=== PATIENT | female | born 1940 | race Caucasian/White ===

== ENCOUNTER 2017-10-31 06:24 | Inpatient (IN) | payer MEDICARE ==
[~2017-10-31] VITALS: Ht 165.1 cm; Wt 81.6 kg
[~2017-10-31 06:24] MED LIST: ASPIR 8181 MG PO; C-10001000 MG PO; CALCIUM CARBO1250 MG PO; CLARITIN10 MG PO; GABAPENTIN 100100 MG PO; HAIR, SKIN & N1 EAC3 PO; LIPITOR80 MG PO; MOBIC15 MG PO; OXYBUTYNIN CHLO15 MG PO; PROTONIX40 M2 PO
[2017-11-23] MEDS ORDERED: TRAMADOL 50 MG50 MG PO (14:54)
[2017-11-23] MEDS ORDERED: MYRBETRIQ25 MG PO (14:54)
[2017-12-01 09:28] LABS: ABSOLUTE BASOPHILS 0.1 thou/uL (0.0-0.2); ABSOLUTE EOSINOPHILS 0.2 thou/uL (0.0-0.7); ABSOLUTE LYMPHOCYTES 2.1 thou/uL (0.8-5.3); ABSOLUTE MONOCYTES 0.4 thou/uL (0.0-1.2); ABSOLUTE NEUTROPHILS 3.9 thou/uL (1.6-8.1); BASOPHILS 1.3 %; EOSINOPHILS 2.8 %; HEMATOCRIT 43.3 % (37.0-47.0); HEMOGLOBIN 14.5 gm/dL (12.0-15.0); LYMPHOCYTES 31.2 %; MCH 30.3 pg (26.0-34.0); MCHC 33.5 g/dL (28.0-37.0); MCV 90.4 fL (80.0-100.0); MONOCYTES 6.3 %; MPV 8.5 fl. (7.2-11.1); NUCLEATED RBCS 0 /100WBC; PLATELET COUNT* 254 thou/uL (150-400); POLYS 58.4 %; RBC 4.79 mil/uL (4.20-5.00); WBC 6.7 thou/uL (4.0-11.0)
[2017-12-01 09:38] LABS: APTT 31.4 Seconds (25.0-31.3); INR 1.1; PROTIME 10.7 Seconds (9.20-11.50)
[2017-12-01 09:46] LABS: ALBUMIN 3.5 g/dL (3.4-5.0); CALCIUM 9.1 mg/dL (8.5-10.1); CREATININE 0.9 mg/dL (0.6-1.3); POTASSIUM 3.6 mmol/L (3.5-5.1); TOTAL BILIRUBIN 0.5 mg/dL (<0.1-1.0); TOTAL PROTEIN 7.3 g/dL (6.4-8.2)
--- NOTE | 2017-12-01 09:47 | EKG ---
[place] [address] ELECTROCARDIOGRAM REPORT Name: NIHARIKA AUSTIN Room: PRE IN [facility].#: [id number] Admission: Attend Phys: Santosh Beckham Discharge: Date of : 40 Report #: [id number] THIS REPORT FOR: //name// [facility] Test Date: 2017-12-01 Test Time: 09:28:31 Pat Name: NIHARIKA AUSTIN Department: Room: Gender: F Pipefitter Helper: : 1940 Requested By: Leon Jerome Order Number: [id number] Reading MD: Handy Rascon Measurements Intervals [place] Rate: 75 P: 65 GA: 189 QRS: -5 QRSD: 103 T: 68 QT: 414 QTc: 463 Interpretive Statements Sinus rhythm Low voltage, precordial leads RSR' in V1 or V2, right VCD or RVH No previous ECG available for comparison Electronically Signed On 12-01-2017 9:47:41 CDT by Handy Rascon [email or web address] <ELECTRONICALLY SIGNED> By: Handy Rascon MD, [facility] 12/01/17 0947 7 Handy Rascon MD, FACC /EPI
[2017-12-01 10:27] LABS: ESR (SEDRATE) 11 mm/hr (0-30)
[2017-12-02 03:13] LABS: GLYCOHEMOGLOBIN (HGB A1C) 5.6 % (4.8-5.6)
--- NOTE | 2017-12-12 16:55 | NUR ---
POST OP L TOTAL KNEE REPORT GIVEN PATIENT TO RM AND ORIENTED TO CALL LIGHT AND RM C/O OF PAIN TO GET PO PAIN MED ADAN WITH DELIVERY OF FOOD
[2017-12-12 17:06] VITALS: BP 164/75
[2017-12-12 20:20] VITALS: BP 161/78
[2017-12-12 23:41] VITALS: BP 146/64
[2017-12-13 04:00] VITALS: BP 131/68
[2017-12-13 04:10] LABS: HEMATOCRIT 37.6 % (37.0-47.0); HEMOGLOBIN 12.4 gm/dL (12.0-15.0); MCH 30.1 pg (26.0-34.0); MPV 8.6 fl. (7.2-11.1); RBC 4.13 mil/uL (4.20-5.00); RDW-CV 13.8 % (10.5-14.5); WBC 14.2 thou/uL (4.0-11.0)
[2017-12-13 04:29] LABS: CALCIUM 8.9 mg/dL (8.5-10.1); CREATININE 0.8 mg/dL (0.6-1.3); POTASSIUM 4.9 mmol/L (3.5-5.1)
--- NOTE | 2017-12-13 05:01 | NUR ---
PATIENT HAS SLEPT OFF AND ON BUT HAS BEEN RESTLESS AT TIMES. PAIN CONTROLLED WITH ORAL PAIN MEDICATIONS. VSS ON 3L O2 VIA NASAL CANNULA AND CAPNO IN PLACE. CEDENO TO DEPENDENT DRAINAGE WITH YELLOW URINE OUTPUT, BUT IS TO BE REMOVED THIS AM. SURGICAL DRESSING TO LEFT KNEE IS C/D/I, FRANCESCA VERGARAE AND SCD'S IN PLACE. PATIENT INSTRUCTED TO USE CALL LIGHT WHEN NEEDING ASSISTANCE. HOURLY ROUNDS MADE. WILL CONTINUE WITH PLAN OF CARE AND NURSING TO MONITOR.
[2017-12-13 07:52] VITALS: BP 142/70
--- NOTE | 2017-12-13 16:01 | NUR ---
RECIEVED O.T. EVAL AND TX ORDERS. WILL DEFER TO P.T. AND NURSING. PLEASE ORDER FURTHER O.T. SERVICES IF NEEDED.
--- NOTE | 2017-12-13 16:29 | NUR ---
PT.RESTING IN BED. SHE WAS ALERT AND ORIENTED. SHE LIVES BY HERSELF. SHE WILL BE GOING TO STAY AT HER DAUGHTER,ALISA'S HOME AT DISCHARGE. DAUGHTER DOESN'T HAVE STAIRS EXCEPT ONE TO GET IN THE HOUSE. PT.HAS 2 WALKERS. SHE IS NORMALLY INDEPENDENT AT HOME. SHE PLANS ON GOING TO OUTPT.THERAPY AT [facility] IN [place]. HER SON IN LAW WILL TAKE HER. PHARMACY IS [facility] IN [place].
[2017-12-13 16:32] VITALS: BP 142/70
--- NOTE | 2017-12-13 17:35 | NUR ---
ASSUMED CARE OF PATIENT AFTER MORNING REPORT. ALERT AND ORIENTED X4. ASSESSMENT COMPLETED AND CHARTED. VSS ON 2 LITERS 02. PATIENTS PAIN AND NAUSEA HAVE BEEN MANAGED WITH MEDICATION. PATIENT TITRATED OFF OF 02 AND REMAINS STABLE ON ROOM AIR. WORKED WELL WITH THERAPY TODAY. IV INFILTRATED AFTER LAST ROUND OF IV ANTIBIOTICS, ALL MEDS ARE PO NOW SO IV ACCESS HAS BEEN LEFT OUT. HOURLY ROUNDS HAVE BEEN MAINTAINED. CALL LIGHT IS WITHIN REACH. NURSING WILL CONTINUE TO MONITOR.
[2017-12-13 17:38] VITALS: BP 155/88
[2017-12-13 20:20] VITALS: BP 140/72
[2017-12-13 23:57] VITALS: BP 143/60
[2017-12-14 04:09] VITALS: BP 131/74
[2017-12-14 04:28] LABS: HEMATOCRIT 33.3 % (37.0-47.0); HEMOGLOBIN 11.2 gm/dL (12.0-15.0); MCHC 33.6 g/dL (28.0-37.0); MCV 89.5 fL (80.0-100.0); MPV 8.4 fl. (7.2-11.1); RBC 3.72 mil/uL (4.20-5.00); RDW-CV 13.8 % (10.5-14.5)
--- NOTE | 2017-12-14 05:12 | NUR ---
PATIENT HAS SLEPT OFF AND ON BUT RESTLESS AT TIMES. PAIN WELL CONTROLLED WITH ORAL PAIN MEDICATION NEEDED AND CHARTED. PATIENT HAD SLIGHTLY DECREASED 02 SATURATION AND WAS PLACED ON 2L 02 VIA NASAL CANNULA. VSS ON 2L 02, ALTHOUGH PULSE HAS BEEN SLIGHT TACHYCARDIC AT TIMES. DRESSING TO LEFT KNEE IS C/D/I, FRANCESCA HOSE, AND SCD'S IN PLACE. PATIENT INSTRUCTED TO USE CALL LIGHT WHEN NEEDING ASSISTANCE. HOURY ROUNDS MADE. WILL CONTINUE WITH PLAN OF CARE AND NURSING TO MONITOR.
[2017-12-14 08:14] VITALS: BP 117/67
[2017-12-14 14:25] VITALS: BP 146/64
--- NOTE | 2017-12-14 15:14 | NUR ---
SPOKE WITH PT.AND DAUGHTER,ALISA. PT.NOT PROGRESSING WELL IN THERAPY SHE THOUGHT SHE WOULD. SHE FEELS SHE NEEDS TO GO TO SNF. HER DAUGHTER WORKS DURING THE DAY AND SAID SHE CANNOT EVEN WALK TO THE BATHROOM BY HERSELF. THERAPY CONCURS. SHE WOULD LIKE TO GO TO [facility] OR [facility]. SPOKE WITH DOMENICO AND [facility] IN ADMISSIONS RESPECTIVELY AND FAXED THEM BOTH REFERRALS. THEY SAID THEY WILL REVIEW AND GET BACK TO CM.
--- NOTE | 2017-12-14 17:50 | NUR ---
ASSUMED CARE OF PATIENT AFTER MORNING REPORT. ALERT AND ORIENTED X4. ASSESSMENT COMPLETED AND CHARTED. VSS ON 2 LITERS 02. PATIENTS PAIN AND NAUSEA HAVE BEEN MANAGED WITH MEDICATION. PATIENT IS WORKING WELL WITH THERAPY AND PROGRESSING TOWARDS GOALS. RESTING COMFORTABLY IN BED AT THIS TIME. HOURLY ROUNDS HAVE BEEN MAINTAINED. CALL LIGHT WITHIN REACH. NURSING WILL CONTINUE TO MONITOR.
[2017-12-14 20:30] VITALS: BP 140/69
[2017-12-15 00:16] VITALS: BP 150/73
[2017-12-15 04:01] VITALS: BP 128/60
--- NOTE | 2017-12-15 05:18 | NUR ---
PATIENT ALERT AND ORIENTED X4 THROUGHOUT SHIFT. VITAL SIGNS STABLE, OXYGEN STABLE ON 2 LITERS NASAL CANNULA. PAIN MANAGED WITH PO MEDICATION. DENIED NAUSEA. SCD'S AND FRANCESCA HOSE IN PLACE TO BILAT LEGS. TRANSFERRING WITH ASSIST X1 TO THE BATHROOM WITH WALKER AND GAIT BELT. TOLERATING REGULAR DIET. THERE IS CURRENTLY NO IV IN PLACE. RESTED COMFORTABLY THROUGHOUT THE NIGHT. FALL PRECAUTIONS REMAIN IN PLACE. BED IN LOW POSITION WITH ALARM ON. CALL LIGHT WITHIN REACH. NURSING WILL CONTINUE TO MONITOR.
[2017-12-15 08:45] VITALS: BP 145/66
--- NOTE | 2017-12-15 09:56 | S ---
[address] [address] SURGICAL PATH RPT PROCEDURE Name: PAULINA GUDINO Room: [address] IN M.R.#: [id number] Admission: 12/12/17 Date of : 40 Discharge: Report #: [id number] Path Case #: [id number] PATHOLOGY REPORT COLLECTION DATE: 12/12/2017 RECEIVED DATE: 12/12/2017 SUBMITTING PHYS: Dr. Leon Jerome OTHER PHYS: Dr. Rafael Cartagena SPECIMEN(S) RECEIVED: A.L knee bone and tissue * * * * * * * * * * * * FINAL DIAGNOSIS: Left knee bone and tissue, total knee replacement: - Benign meniscus and fibrofatty tissue/synovium and benign bone and cartilage with severe degenerative changes. (ROBBY:db; 12/14/2017) PATHOLOGIST: Kevin Jackson M.D. REPORT ELECTRONICALLY SIGNED BY: Kevin Jackson M.D. DATE/TIME: 12/15/2017 09:55 * * * * * * * * * * * * GROSS PATHOLOGY: Received in formalin labeled "Paulina uGdino, bone and tissue left knee," are multiple segments of bone, including tibial plateau, measuring 8.2 x 7.6 x 1.8 cm in aggregate dimensions admixed with soft tissue; meniscus is present. The specimen shows focal eburnation of the articular surfaces. [facility] sections of bone and soft tissue are submitted in cassette A1, following decalcification. (CAA; 12/13/2017) CLINICAL HISTORY: Left knee degenerative joint disease INITIAL CPT CODE(S): A; 41623, 62570 Professional services performed by [facility] at [facility] [address] [place] [address] Technical services performed by [facility] at [address] [place] [address], [facility] [[email or web address] [address] [address]. [place] [address] SURGICAL PATH RPT PROCEDURE Name: PAULINA GUDINO Room: [address] IN [facility].#: [id number] Admission: 12/12/17 Date of : 40 Discharge: Report #: [id number] Path Case #: [id number] [facility] [address] [address] PHONE: [phone] DIRECTOR: Guy Schulte M.D. * * * END OF REPORT * * *
--- NOTE | 2017-12-15 12:41 | NUR ---
PT.HAS DISCHARGE ORDERS FOR TODAY. BOTH [facility] HAVE ACCEPTED HER AND SHE CHOSE [facility]. NOTIFIED TESS AND FAXED ORDERS TO HER AT [phone]. PT.CALLING DAUGHTER TO SEE WHEN SHE CAN GET OFF WORK TO DRIVE HER THERE. WILL NOTIFY [facility]. CM NOTIFIED [facility] THAT PT.CHOSE ANOTHER FACILITY. CHART COPIED TO GO WITH PT. NURSING TO CALL REPORT TO [phone].
[2017-12-15 14:07] VITALS: BP 142/70
[2017-12-15] MEDS ORDERED: ONDANSETRON HCL4 M2 PO (14:25)
[2017-12-15] MEDS ORDERED: ELIQUIS2.5 MG PO (14:26)
[2017-12-15] MEDS ORDERED: OXYCODONE HCL 55 MG PO (14:26)
--- NOTE | 2017-12-15 18:44 | NUR ---
PATIENT LEFT UNIT AT 1500. ALERT AND ORIENTED X4. UP WITH ASSIST X1 WITH WALKER AND GAIT BELT. IV DC'D. PAIN BEING MANAGED WITH PO PAIN MEDICATION. DENIES NEED FOR NAUSEA MEDICATION THIS SHIFT. ATTENDED AM THERAPY TODAY. ICE PACKS IN PLACE THROUGHOUT SHIFT. ALL PERSONAL ITEMS LEFT WITH PATIENT. DISCHARGE INSTRUCTIONS, PRESCRIPTIONS, AND NEW MEDICATION INFORMATION SENT WITH PATIENT. VSS ON ROOM AIR. HOURLY ROUNDS HAVE BEEN MAINTAINED THROUGHOUT SHIFT. LEFT WITH DAUGHTER VIA CAR TO [facility]. REPORT CALL TO NURSE AT FACILITY.
[2017-12-15 18:55] VITALS: BP 142/70
--- NOTE | 2018-01-09 16:46 | OP ---
[address] [address] OPERATIVE REPORT Name: NIHARIKA AUSTIN Room: [address] IN .R.#: [id number] Admission: 12/12/17 Attend Phys: Santosh Beckham Discharge: 12/15/17 Date of : 40 Report #: [id number] THIS REPORT FOR: //name// CC: Vadim Iverson DICTATED BY: Roland Colbert DO DATE OF SERVICE: 12/12/2017 PREOPERATIVE DIAGNOSIS: Advanced degenerative joint disease, left knee. POSTOPERATIVE DIAGNOSIS: Advanced degenerative joint disease, left knee. PROCEDURE PERFORMED: Left total knee arthroplasty. SURGEON: Leon Jerome DO. TUMBLER PLATER: Reta Colbert DO and Andrzej Lynn DO ANESTHESIA: Spinal with adductor canal. ESTIMATED BLOOD LOSS: 175 mL. SPECIMENS: None. TOURNIQUET: None. IMPLANTS: Biomet Vanguard total knee system with the following components: 1. A cruciate retained femur, 62.5 mm. 2. A 71 mm fixed cruciate tibial plate. 3. A 10 mm tibial bearing. 4. A 28 mm asymmetric patella. ANTIBIOTICS: 2 g IV Ancef preoperatively. Notes: IV TXA given preoperatively as well. INDICATIONS: The patient is a pleasant 77-year-old female who we have had the opportunity to see in clinic for quite some time now. She has had chronic left knee pain. She has undergone extensive conservative care consisting of oral anti-inflammatories, intra-articular steroid injections, therapy exercises, lifestyle modifications and attempted weight loss. Despite this, she continues to have life altering pain. She is unable to perform her daily activities and has a decreased quality of life due to this pain. For this reason, we discussed [address] [address] OPERATIVE REPORT Name: NIHARIKA AUSTIN Room: [address]#: [id number] Admission: 12/12/17 Attend Phys: Santosh Beckham Discharge: 12/15/17 Date of : 40 Report #: [id number] total knee arthroplasty. She understood and wished to proceed. DESCRIPTION OF PROCEDURE: The patient was seen in the preoperative area where the risks, benefits and alternatives of total knee arthroplasty were discussed. Risks include but are not limited to infection, neurovascular injury, stiffness, continued pain, worsening pain, need for further surgery, DVT, PE and inherent risks associated with anesthesia. She verbalized understanding. Written consent was obtained. She was brought back to the operative suite and placed supine on a well-padded operative table. She was given spinal anesthesia. A well-padded pneumatic tourniquet was applied to the left upper thigh. The left lower extremity was prepped and draped in normal sterile fashion. A surgical timeout was performed where the site, side, and procedure were verified. Everyone present was in agreement. The procedure began by making a standard midline incision. Sharp dissection was taken down through the soft tissues to the level of capsule. A new knife was used to perform a medial parapatellar arthrotomy. The medial capsule was released off the tibia. The patella was everted and the fat pad and anterior menisci were removed. The intramedullary femoral guide was introduced and the distal femoral guide was pinned into place. A standard 10 mm cut was performed. The excess bone was removed. We then turned our attention to the tibia. The extramedullary guide was applied. The proximal tibial guide was pinned into place, taking 10 mm off the high side. This cut was performed in a standard fashion. The cutting block was removed. Excess bone was removed. The knee was brought out into full extension. A 10 block was inserted. She was found to be symmetrically tight. The distal femoral cutting guide was again pinned into place. Next a millimeter was taken. This was all done in 5 degrees of valgus. The femoral sizer was used and measured a 62.5 mm. The 4-in-1 cutting guide was pinned into place. The cuts were made in the normal fashion, anterior, posterior, anterior and posterior chamfer cuts. The cutting block was removed and excess bone was removed as well. The menisci were excised using electrocautery. Our attention was then turned back to the tibia. The tibia measured to a 71 mm baseplate. This was pinned into place. The trial femur was inserted. A 10 mm trial poly was inserted. She achieved full flexion and extension. Flexion and extension gaps were symmetric. Our attention was then turned to the patella, which showed eburnated bone as well as significant osteophytes. For this reason, it was decided to resurface the patella. This was done in the standard fashion with the reamer. This then measured to a 28 mm. The three pegs were drilled. The trial poly patella was inserted. Again, she was taken through range of motion, demonstrating full flexion and extension with symmetric flexion and extension gaps. Patella was tracking well. All the components were removed. The femur was drilled. The tibia was prepared with a drill and cruciform punch. The knee was thoroughly irrigated with pulsatile lavage. The cement was prepared in the normal sterile fashion. The final implants were cemented in and excess cement was removed. A trial 10 mm poly was inserted. Again found to have full flexion, extension with symmetric flexion and extension gaps. The final 10 mm [facility] [address] [place] [address] OPERATIVE REPORT Name: AUSTINNIHARIKA S Room: [address] M.R.#: [id number] Admission: 12/12/17 Attend Phys: Santosh Beckham Discharge: 12/15/17 Date of : 40 Report #: [id number] poly was inserted. The knee was brought to 90 degrees of flexion. The wound was thoroughly irrigated. A topical vancomycin powder was applied. The capsule was closed with a #1 Vicryl in jiwuyl-mv-ahvgt fashion and reinforced with a #1 Stratafix. The wound was again irrigated. The subcutaneous tissue was closed with 2-0 Monocryl. This was followed by 3-0 Stratafix and reinforced with glue. Sterile dressing was applied including Mepilex. FRANCESCA hose were applied. She was awoken from anesthesia and transferred to PACU in stable condition. Needle and sponge counts were correct x 2. <ELECTRONICALLY SIGNED> By: Leon Jerome DO 01/09/18 1646 1547 1616Leon Jerome DO /nt
== END 2017-12-15 15:15 | DRG 470 ==
LOC: M.PRE 06:24 → M.ORTHSURG 12-12 09:05 → M.TBA 12-12 09:05 → M.PRE 12-12 09:20 → M.ORTHSURG 12-12 16:59
PROVIDERS: Orthopaedic Surgery; ADMIT Internal Medicine
PROC: 0SRD0J9 Replacement of Left Knee Joint with Synthetic Substitute, Cemented, Open Approach (ICD-10-PCS; principal; 2017-12-12)
DX: M17.12 Unilateral primary osteoarthritis, left knee (principal); J98.11 Atelectasis; K21.9 Gastro-esophageal reflux disease without esophagitis; E78.5 Hyperlipidemia, unspecified; J30.2 Other seasonal allergic rhinitis; G47.00 Insomnia, unspecified; R09.02 Hypoxemia; Z79.899 Other long term (current) drug therapy; Z90.710 Acquired absence of both cervix and uterus; Z79.82 Long term (current) use of aspirin

== ENCOUNTER 2019-02-26 07:44 | Inpatient (IN) | payer MEDICARE ==
[2019-02-15 09:06] LABS: ABSOLUTE EOSINOPHILS 0.1 thou/uL (0.0-0.7); ABSOLUTE LYMPHOCYTES 1.3 thou/uL (0.8-5.3); ABSOLUTE MONOCYTES 0.4 thou/uL (0.0-1.2); ABSOLUTE NEUTROPHILS 2.5 thou/uL (1.6-8.1); BASOPHILS 0.9 %; EOSINOPHILS 2.5 %; HEMATOCRIT 42.5 % (37.0-47.0); HEMOGLOBIN 14.3 gm/dL (12.0-15.0); LYMPHOCYTES 30.4 %; MCH 29.7 pg (26.0-34.0); MCHC 33.7 g/dL (28.0-37.0); MONOCYTES 8.4 %; MPV 8.5 fl. (7.2-11.1); NUCLEATED RBCS 0 /100WBC; PLATELET COUNT* 207 thou/uL (150-400); POLYS 57.8 %; RBC 4.83 mil/uL (4.20-5.00); RDW-CV 13.6 % (10.5-14.5); WBC 4.4 thou/uL (4.0-11.0)
[2019-02-15 09:14] LABS: APTT 31.1 Seconds (25.0-31.3); INR 1.1; PROTIME 11.3 Seconds (9.20-11.50)
[2019-02-15 09:33] LABS: CALCIUM 9.2 mg/dL (8.5-10.1); POTASSIUM 4.1 mmol/L (3.5-5.1)
[2019-02-15 09:38] LABS: ALBUMIN 3.6 g/dL (3.4-5.0); TOTAL BILIRUBIN 0.6 mg/dL (<0.1-1.0); TOTAL PROTEIN 7.1 g/dL (6.4-8.2)
[2019-02-15 10:24] LABS: ESR (SEDRATE) 5 mm/hr (0-30)
--- NOTE | 2019-02-15 11:37 | EKG ---
[place] [address] ELECTROCARDIOGRAM REPORT Name: NIHARIKA AUSTIN Room: [facility]#: [id number] Admission: Attend Phys: Leon Jerome DO Discharge: Date of : 40 Report #: [id number] THIS REPORT FOR: //name// [facility] Test Date: 2019-02-15 Test Time: 09:18:02 Pat Name: NIHARIKA AUSTIN Department: Room: Gender: F Hand Mixer: LOCO : 1940 Requested By: Leon Jerome Order Number: [id number] Reading MD: Duy Gilliam Measurements Intervals [employer] Rate: 57 P: 56 AK: 187 QRS: 4 QRSD: 102 T: 34 QT: 450 QTc: 439 Interpretive Statements Sinus rhythm Low voltage, precordial leads RSR' in V1 or V2, right VCD or RVH Compared to ECG 12/01/2017 09:28:31 No significant changes Electronically Signed On 02-15-2019 11:37:20 CDT by Duy Gilliam [email or web address] <ELECTRONICALLY SIGNED> By: Duy Gilliam MD, [facility] 02/15/19 1137 7 7 Duy Gilliam MD, [facility] /EPI
[~2019-02-26] VITALS: Ht 165.1 cm; Wt 81.2 kg
--- NOTE | ~2019-02-26 | OP ---
[address] [address] OPERATIVE REPORT Name: NORMANNIHARIKA S Room: [address] IN M.R.#: [id number] Admission: 02/26/19 Attend Phys: Santosh Beckham Discharge: Date of : 40 Report #: [id number] THIS REPORT FOR: //name// CC: LOUISE DOUGLAS Physician staff Rafael Iverson DICTATED BY: Vicente Bello DO DATE OF SERVICE: 02/26/2019 PREOPERATIVE DIAGNOSIS: Advanced degenerative joint disease of the right knee. POSTOPERATIVE DIAGNOSIS: Advanced degenerative joint disease of the right knee. PROCEDURE PERFORMED: Right total knee arthroplasty. SURGEON: Leon Jerome DO EMBROIDERY ASSISTANT: Dorinda Arnold PA-C, and Vicente Bello DO IMPLANTS USED: Biomet Vanguard knee system, 62.5 femur, 71 tibia, 12 poly and a 28 patella. ANESTHESIA: Spinal, local, and peripheral nerve block by Anesthesia. ESTIMATED BLOOD LOSS: 125 mL. SPECIMENS REMOVED: None. COMPLICATIONS: None. DISPOSITION: Stable to PACU. INDICATIONS FOR PROCEDURE: The patient is a very pleasant 79-year-old female, who has been dealing with bilateral knee pain for quite some time. She underwent a left total knee arthroplasty in 2018. She has done very well with that. She continues to have right knee pain. X-rays preoperatively demonstrate joint space narrowing, sclerosis, osteophytic changes and no acute osseous abnormality. We attempted conservative measures. She did rehab and prehab in regards to her right knee pain and she continued to have symptoms that were making her be more sedentary and affect her ADLs. We discussed the risks, benefits, complications, alternatives and indications of procedure. She voiced understanding and wished to proceed. DESCRIPTION OF PROCEDURE: The patient was seen in the preoperative holding [address] [address] OPERATIVE REPORT Name: NIHARIKA AUSTIN Room: [address] IN [facility]#: [id number] Admission: 02/26/19 Attend Phys: Santosh Beckham Discharge: Date of : 40 Report #: [id number]. Correct operative site was marked. Verbal and written consents were obtained. She was transferred to the operative suite and placed supine on the operating table and given the benefit of monitored anesthesia care and the right lower extremity was prepped and draped in the normal sterile fashion. Timeout was performed and all in attendance were in agreement as to correct operative site and procedure to be performed. A 20-blade scalpel was then used to make an anterior longitudinal incision over the knee. This was taken down to the level of the capsule and then a new 10 blade scalpel was used to perform a medial parapatellar arthrotomy. Once we had adequate visualization of the articular surfaces, the intramedullary drill for the femur was used to gain access to the canal. The intramedullary guide was then passed and held in place with bone screws and our distal femoral resection was made. Excess bone was removed to this point. Cutting block was removed and our external tibial guide was placed. We then took 10 mm off the high lateral side and the cutting block was held in place with bone screws. Utilizing the oscillating saw, our proximal tibial resection was then made and excess bone osteophytes were removed appropriately. Knee was taken into extension and 10-mm extension block tracker was placed and found to have excellent alignment and coronal balancing. The knee pins were then removed. The knee was flexed. An AP sizer for the femur was placed. She measured for 62.5 and appropriate drill holes were made with external rotation and verified with Whitesides line. The 4-in-1 cutting block was malleted into place and held with bone nails. Our 4-in-1 resection cuts were made. Excess bone osteophytes were removed utilizing a rongeur and electrocautery. Once this was performed, our tibial trial was held in place. A drop jane was used to verify proper alignment. This was held in place with a bone nails and then our trial femur was placed. A 10-mm spacer poly trial was inserted into the knee, taken through range of motion and found to have good balancing in the coronal plane, although was more lax than ideal. We then used the 12-mm trial and this was found to have excellent range of motion, excellent balance in the coronal and sagittal planes. The patella was then everted, cauterized using electrocautery circumferentially. We then used a 41-mm patellar reamer, resecting appropriate amount of cartilage and bone. We then trialed this and sized at 28 mm. PEG holes were drilled and our patellar trial was inserted. Knee was taken through range of motion and found to have excellent patellar tracking. The trial implants were removed with the exception of the proximal tibia, which was used to further prepare the proximal tibia with our intramedullary reamer followed by the cruciate osteotome. Once the trial was then removed, the knee was thoroughly irrigated with sterile saline in a pulsatile fashion. Once the cut bony surfaces were thoroughly irrigated with pulsatile lavage, the cement was mixed under vacuum suction on the back table, applied to the bony surfaces as well as the implants. Final implants were then malleted into place. Excess cement was removed utilizing a Crawford and a Sharyn and this was allowed to harden appropriately. Final 12-mm poly was inserted and taken through [facility] [address] [place] [address] OPERATIVE REPORT Name: JUANPABLO AUSTINJULIANN Akbar Room: [address] IN .R.#: [id number] Admission: 02/26/19 Attend Phys: Santosh Beckham Discharge: Date of : 40 Report #: [id number] range of motion and found to have excellent stability and patellar tracking in all planes. The capsule was then closed using a #1 Vicryl in leizkv-gb-esefh fashion followed by a running #1 Quill barbed suture and 1 gram of vancomycin was inserted into the joint and around the soft tissues. Skin was closed using 2-0 Monocryl in an inverted interrupted fashion followed by running 3-0 Stratafix and Dermabond skin glue. A sterile Mepilex dressing was placed over this. Hemostasis was maintained throughout the case, utilizing electrocautery and tourniquet at the thigh. All needle and scrub counts were correct at the end of the case x 2. I attest Dr. Jerome was present throughout all critical decision making aspects of the case. POSTOPERATIVE PLAN: The patient is weightbear as tolerated to right lower extremity. She will be on DVT prophylaxis with Eliquis 2.5 mg p.o. b.i.d. and receive physical therapy, p.o. analgesia as appropriate. She also received postoperative antibiotics in weight-based fashion. By: 1435 1521Roberstephanie Jerome DO /jeremy
[~2019-02-26 07:44] MED LIST changes: -CALCIUM CARBO1250 MG PO; +CALCIUM CARBONATE PO; +ELIQUIS2.5 MG PO; +MYRBETRIQ25 MG PO; +ONDANSETRON HCL4 M2 PO; +OXYBUTYNIN 5 MG5 M2 PO; +OXYCODONE HCL 55 MG PO; +TRAMADOL 50 MG50 MG PO
[2019-02-26 15:34] VITALS: BP 148/80
[2019-02-26 16:00] VITALS: BP 122/48
--- NOTE | 2019-02-26 17:10 | NUR ---
PT ARRIVED TO UNIT ABOUT 1520 FROM PACU. A&Ox4. VITALS STABLE. ON RA. STRESS INCONTINENT. MEPILEX C/D/I. ICE PACK, SCDs IN PLACE. TOLERATING FOOD AND DRINKS. BM YESTERDAY. DENIED PAIN MEDICATIONS. IV PATENT, INFUSING. WORKED WITH THERAPY. UP WITH 1 USING GAITBELT AND WALKER, MIN ASSIST. FALL PRECAUTIONS IN PLACE. CALL LIGHT WITHIN REACH. WILL CONTINUE TO MONITOR.
[2019-02-26 21:30] VITALS: BP 176/68
[2019-02-27] VITALS: BP 153/89
[2019-02-27 04:00] VITALS: BP 117/61
[2019-02-27 04:34] LABS: HEMATOCRIT 37.6 % (37.0-47.0); HEMOGLOBIN 12.2 gm/dL (12.0-15.0)
--- NOTE | 2019-02-27 06:41 | NUR ---
PATIENT HAS SLEPT OFF AND ON DURING THE SHIFT, BUT RESTLESS AT TIMES. VSS ON RA, ALTHOUGH BP ELEVATED. MEDICATIONS GIVEN ORDERED AND CHARTED. PATIENT IS UP WITH ASSIST X 1 WITHT GAITBELT AND WALKER TO [facility]. DRESSING TO RIGHT KNEE IS C/D/I, TEDS, AND SCD'S IN PLACE. NEW IV INSERTED IN LEFT HAND-LR @ 75ML/HR. IV ABT GIVEN WITHOUT ANY ADVERSE SIDE EFFECTS NOTED. PATIENT INSTRUCTED TO USE CALL LIGHT WHEN NEEDING ASSISTANCE. HOURLY ROUNDS MADE. WILL CONTINUE WITH PLAN OF CARE AND NURSING TO MONITOR.
[2019-02-27 07:41] VITALS: BP 145/73
[2019-02-27 12:30] VITALS: BP 147/56
--- NOTE | 2019-02-27 13:15 | NUR ---
PT.RESTING IN BED. SHE SAID SHE IS GOING TO STAY AT DAUGHTER,ALISA'S HOUSE AT DISCHARGE SO SHE CAN HELP TO TAKE CARE OF HER. PT.IS NORMALLY INDEPENDENT BUT THOUGHT SHE COULD USE SOME HELP AFTER SURGERY. SHE HAS A FRONT WHEEL WALKER AND A ROLLATOR WALKER. SHE SAID THERAPY SAID TO USE THE WALKER WITH WHEELS. SHE SAID SHE HAS HER APPT.SET UP WITH OUTPT. THERAPY AT [facility] IN [place] ALREADY. CM CALLED IN PRESCRIPTION FOR ELIQUIS TO PT.S PHARMACY [facility] IN [place]. IT REQUIRES PRIOR AUTH. CM WILL OBTAIN.
[2019-02-27 16:30] VITALS: BP 153/69
--- NOTE | 2019-02-27 16:38 | NUR ---
PT A&Ox4. VITALS STABLE. DRESSING IS CLEAN, DRY AND INTACT. TEDS, ICE AND SCDS IN PLACE. PAIN CONTROLLED WITH OXY IR. NAUSEA CONTROLLED WITH ZOFRAN. UP WITH 1 USING GAITBELT AND WALKER. IV PATENT, SL. WORKED WELL WITH THERAPY. FALL PRECAUTIONS IN PLACE. CALL LIGHT WITHIN REACH. WILL CONTINUE TO MONITOR.
[2019-02-27 19:40] VITALS: BP 145/66
[2019-02-27 21:07] LABS: HBsAG-EMPLOYEE EXPOSURE Negative (Negative)
[2019-02-28 00:40] VITALS: BP 155/68
[2019-02-28 04:03] VITALS: BP 157/77
[2019-02-28 04:16] LABS: HEMOGLOBIN 13.5 gm/dL (12.0-15.0); MCH 29.2 pg (26.0-34.0); MCV 88.6 fL (80.0-100.0); MPV 9.1 fl. (7.2-11.1); RBC 4.62 mil/uL (4.20-5.00); RDW-CV 13.7 % (10.5-14.5); WBC 9.9 thou/uL (4.0-11.0)
[2019-02-28 04:31] LABS: CALCIUM 9.1 mg/dL (8.5-10.1); CREATININE 0.9 mg/dL (0.6-1.3); POTASSIUM 4.1 mmol/L (3.5-5.1)
--- NOTE | 2019-02-28 05:10 | NUR ---
PATIENT HAS REMAINED ALERT AND ORIENTED X 4 THROUGHOUT THE SHIFT AND RESTING QUIETLY ON HOURLY ROUNDS. UP AT SHIFT CHANGE TO VOID. ASSIST WITH TURNS PRN. DRESSING RIGHT KNEE CLEAN AND DRY. ICE PACKS PROVIDED. ADEQUATE PAIN MANGEMENT WITH SCHEDULED TRAMADOL AND GABAPENTIN. VITAL SIGNS STABLE WITH O2 RE-APPLIED AT MIDNIGHT FOR SAT LESS THAN 88%. RT FOLLOWING. PASSING GAS. NO BM. METAMUCIL AND MILK OF MAGNESIA PROVIDED WITH HS COLACE. CONTINUE TO MONITOR.
--- NOTE | 2019-02-28 07:12 | NUR ---
RECEIVED OT ORDERS, WILL DEFER TO P.T. AT THIS TIME. PLEASE WRITE NEW ORDERS IF NEEDED.
[2019-02-28 07:40] VITALS: BP 182/88
--- NOTE | 2019-02-28 17:46 | NUR ---
ASSUMED CARE OF PATIENT AT APPROX 0730. ALERT AND ORIENTED X4. ASSESSMENT COMPLETED AND CHARTED. VSS ON ROOM AIR. PAIN MANAGED WITH ORAL MEDICATION. PATIENT WORRIED THAT SHE HAD NOT HAD A BOWEL MOVEMENT SINCE THE DAY OF SURGERY, DR ORDERED MAG CITRATE AND MIRALAX, GAVE TOGETHER WITH NO BOWEL MOVEMENT. PATIENT ASKED FOR AN ENEMA, DR SHIPMAN PAGED AND ORDER ADDED. GAVE ENEMA AND PATIENT HAD A LARGE BOWEL MOVEMENT, REPORTS FEELING MUCH BETTER AFTERWARDS. PATIENT WORKED WITH THERAPIES AND PROGRESSED TOWARD GOALS. UP WITH GAIT BELT AND WALKER TO BEDSIDE COMMODE. FALL PRECAUTIONS IN PLACE. CALL LIGHT WITHIN REACH AND USES APPROPRIATELY. HOURLY ROUNDS COMPLETED. WILL CONTINUE TO MONITOR.
[2019-02-28 19:50] VITALS: BP 134/80
[2019-03-01 04:00] VITALS: BP 133/75
--- NOTE | 2019-03-01 05:05 | NUR ---
PATIENT HAS REMAINED ALERT AND ORIENTED X 4 THROUGHOUT THE SHIFT AND RESTING QUIETLY ON HOURLY ROUNDS. LARGE AMOUNT UNEXPECTED EMESIS X 1 TONIGHT. ZOFRAN PROVIDED X 1 TO GOOD EFFECT. PAIN MANAGED WITH ORAL MEDS. DRESSING RIGHT KNEE CLEAN AND DRY. UP WITH ASSIST OF ONE, GAIT BELT AND WALKER. PATIENT STATES FEELS WEAK. AGAIN O2 RE-APPLIED OVERNIGHT FOR SATURATION BELOW 90%. SLOW PROGRESSION TOWARDS DISCHARGE GOALS. VITAL SIGNS STABLE. CONTINUE TO MONITOR.
[2019-03-01 07:50] VITALS: BP 131/89
--- NOTE | 2019-03-01 11:58 | NUR ---
DISCUSSED SNF WITH PT. SHE LOST A DAY OF THERAPY DUE TO NAUSEA AND VOMITING. AND THERAPIST RECOMMENDING SNF. GAVE HER A LIST OF FACILITIES,INCLUDING [facility], WHERE PT.LIVES. SHE SAID SHE WILL WOULD LIKE TO LOOK AT IT FOR A BIT. CM WILL CHECK BACK WITH PT.AFTER LUNCH.
[2019-03-01 15:06] LABS: ABSOLUTE EOSINOPHILS 0.1 thou/uL (0.0-0.7); ABSOLUTE MONOCYTES 0.8 thou/uL (0.0-1.2); BASOPHILS 0.4 %; HEMATOCRIT 39.7 % (37.0-47.0); HEMOGLOBIN 13.1 gm/dL (12.0-15.0); LYMPHOCYTES 8.3 %; MCH 29.4 pg (26.0-34.0); MCV 89.1 fL (80.0-100.0); MONOCYTES 7.1 %; MPV 8.9 fl. (7.2-11.1); NUCLEATED RBCS 0 /100WBC; PLATELET COUNT* 242 thou/uL (150-400); POLYS 83.2 %; RBC 4.46 mil/uL (4.20-5.00); RDW-CV 13.6 % (10.5-14.5)
[2019-03-01 15:12] LABS: CALCIUM 8.6 mg/dL (8.5-10.1); CREATININE 1.1 mg/dL (0.6-1.3); POTASSIUM 4.3 mmol/L (3.5-5.1)
[2019-03-01 16:45] LABS: URINE BILIRUBIN NEGATIVE (Negative); URINE BLOOD NEGATIVE (Negative); URINE CLARITY CLEAR; URINE COLOR DARK YELLOW; URINE GLUCOSE-RANDOM NEGATIVE (Negative); URINE KETONES NEGATIVE (Negative); URINE LEUKOCYTES-REFLEX NEGATIVE (Negative); URINE NITRITE-REFLEX NEGATIVE (Negative); URINE PROTEIN 1+ (Negative); URINE UROBILINOGEN 0.2 E.U./dl (0.2-1.0)
--- NOTE | 2019-03-01 18:25 | NUR ---
PT ARRIVED TO UNIT AT APPROX 1620 VIA BED. RECEIVED REPORT FROM HARISH RN, THIS NURSE AGREES WITH PRIOR NURSING ASSESSMENT. ORIENTED TO ROOM AND CALL LIGHT. WILL CONT POC.
--- NOTE | 2019-03-01 19:54 | NUR ---
ASSUMED CARE OF PATIENT AT APPROX 0730. ALERT AND ORIENTED X4. ASSESSMENT COMPLETED AND CHARTED. VSS ON 2 LITERS 02, PATIENT TACHY WHILE AT REST, WITH PULSE OF 122. PATINET FEELING NAUSEOUS THIS MORNING AND NOT WANTING TO TAKE PAIN MEDS. ZOFRAN GIVEN WITH SOME RELIEF. PATIENT HAS NO APPETITE, ENCOURAGED TO TRY AND EAT SOMETHING, ORDERED THINGS THAT SHE WOULD LIKE FOR MEALS, STILL DID NOT EAT MUCH. MINIMAL PAIN MEDICATION GIVEN DUE TO NAUSEA AND PATIENT BECOMING CONFUSED. PATIENTS PULSE STILL ELEVATED UPON REASSESSMENT, AT 115. DR SHIPMAN NOTIFIED AND ORDERED TELE TRANSFER, EKG, TROPONIN AND CXR. EKG SHOWED SINUS TACHY. TROPONIN NEGATIVE. 2 LITERS NS BOLUSED AND THEN @ 100 ML/HR. PATIENT STILL CONFUSED IN CONVERSATION; LOOKING OUT WINDOW AND STATING THAT SHE AND HER DAUGHTER WERE GOING TO HAVE THE CHICKEN SALAD FROM THAT [employer], FOR DINNER. PATIENT TRANSFERRED UP TO TELEMETRY UNIT AT APPROX 1800, REPORT GIVEN TO YUNIEL DE LA GARZA.
[2019-03-01 20:00] VITALS: BP 153/81
[2019-03-02] VITALS (7 sets, daily range): BP systolic 116–150; BP diastolic 60–90
--- NOTE | 2019-03-02 05:19 | NUR ---
PT. HAD NO C/O PAIN THROUGHOUT SHIFT. UP TO BSC X2, LARGE LIQUID BOWEL MOVEMENT, INCONTINENT IN BED X1. PT. GETS UP STAND BY ASSIST. USES WALKER TO AMBULATE. PT. REQUESTED BSC BECAUSE SHE DIDN'T THINK SHE WOULD BE ABLE TO HOLD HER BOWELS AND URINE TO GET TO THE RESTROOM. PT. IS SR ON MONITOR. HAS HAD NO EPISODES OF CONFUSION THIS SHIFT, ALERT AND ORIENTED X4. 2L O2, WILL CONTINUE TO MONITOR.
[2019-03-02 05:40] LABS: HEMATOCRIT 33.2 % (37.0-47.0); HEMOGLOBIN 11.1 gm/dL (12.0-15.0); MCH 29.6 pg (26.0-34.0); MCHC 33.4 g/dL (28.0-37.0); MCV 88.8 fL (80.0-100.0); MPV 9.1 fl. (7.2-11.1); RBC 3.74 mil/uL (4.20-5.00); RDW-CV 13.7 % (10.5-14.5); WBC 7.4 thou/uL (4.0-11.0)
[2019-03-02 05:49] LABS: CALCIUM 7.8 mg/dL (8.5-10.1); CREATININE 0.8 mg/dL (0.6-1.3); MAGNESIUM 2.4 mg/dL (1.8-2.4); POTASSIUM 3.7 mmol/L (3.5-5.1)
--- NOTE | 2019-03-02 12:41 | NUR ---
MASON spoke with Deann at [facility], they are either able to accept Pt for skilled today or Tuesday, they are not able to accept Pt over the weekend. Following.
--- NOTE | 2019-03-02 14:02 | EKG ---
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1940 Requested By: Carin Wallis Order Number: [id number] Shruthi MD: Handy Rascon Measurements Intervals [place] Rate: 102 P: 31 AL: 154 QRS: -15 QRSD: 82 T: 42 QT: 363 QTc: 473 Interpretive Statements Sinus tachycardia Inferior infarct, old Compared to ECG 02/15/2019 09:18:02 Myocardial infarct finding now present Sinus rhythm no longer present Electronically Signed On 03-02-2019 14:02:17 CDT by Handy Rascon [email or web address] <ELECTRONICALLY SIGNED> By: Handy Rascon MD, [facility] 03/02/19 1402 145 145 Handy Rascon MD, [facility] /EPI
--- NOTE | 2019-03-02 16:20 | NUR ---
PERSON INVESTIGATOR INFORMED OF THE NEED TO ARRANGE OUTPATIENT PT WITH [facility] IN [place]. D/C WELDER ARRANGED AND CONFIRMED APPOINTMENT FOR WEDNESDAY, MARCH 06, 2019 AT 1500. ALL INFO PLACED IN PATIENT'S D/C PAPERWORK. CM WILL REMAIN AVAILABLE TO ASSIST AND FOLLOW NEEDED.
[2019-03-02] MEDS ORDERED: MIRALAX17 GM PO (16:25)
[2019-03-02] MEDS ORDERED: FLEET ENEMA133 ML RECTAL (16:26)
[2019-03-02] MEDS ORDERED: COLACE100 MG PO (16:27)
[2019-03-02] MEDS ORDERED: LIDOCAINE PAIN1 EACH TOP (16:28)
[2019-03-02] MEDS ORDERED: ELIQUIS2.5 MG PO (16:30)
[2019-03-02] MEDS ORDERED: OXYCODONE HCL 55 MG PO (16:32)
== END 2019-03-02 17:07 | disposition home or self-care (01) | DRG 470 ==
LOC: M.SUR 07:44 → M.ORTHSURG 11:08 → M.TBA 11:08 → M.ORTHSURG 15:14 → M.2W 03-01 18:05
PROVIDERS: Internal Medicine; Orthopaedic Surgery; Specialist; ADMIT Internal Medicine
PROC: 0SRC0J9 Replacement of Right Knee Joint with Synthetic Substitute, Cemented, Open Approach (ICD-10-PCS; principal; 2019-02-26)
DX: M17.11 Unilateral primary osteoarthritis, right knee (principal); Z96.652 Presence of left artificial knee joint; E78.5 Hyperlipidemia, unspecified; K21.9 Gastro-esophageal reflux disease without esophagitis; K59.00 Constipation, unspecified; E86.0 Dehydration; Z90.710 Acquired absence of both cervix and uterus; Z90.49 Acquired absence of other specified parts of digestive tract; Z79.899 Other long term (current) drug therapy; Z79.82 Long term (current) use of aspirin